=== PATIENT | female | born 1980 | race African-American/Black ===

== ENCOUNTER 2022-03-02 11:16 | Inpatient (IN) | payer OTHER ==
[2022-03-02 12:04] VITALS: BMI 26.1
[2022-03-02] MEDS ORDERED: LOPERAMIDE HCL 2 MG CAPSULE PO PRN (12:20)
[2022-03-02] MEDS ORDERED: BISMUTH SUBSALICYLATE 262 MG/15 ML BTL PO PRN (12:20)
[2022-03-02] MEDS ORDERED: MAG HYDROX/AL HYDROX/SIMETH 30 ML UNIT-DOSE CUP PO PRN (12:20)
[2022-03-02] MEDS ORDERED: ONDANSETRON *ODT* 4 MG TABLET SL PRN (12:20)
[2022-03-02] MEDS ORDERED: DICYCLOMINE HCL 10 MG CAPSULE PO PRN (12:20)
[2022-03-02] MEDS ORDERED: MAGNESIUM HYDROX 2400MG/30ML ORAL SUSPENSION 30 ML CUP PO PRN (12:20)
[2022-03-02] MEDS ORDERED: ACETAMINOPHEN 325 MG TABLET (FP) PO PRN (12:20)
[2022-03-02] MEDS ORDERED: BENZOCAINE/MENTHOL (CHLORASEPTIC ) LOZENGE MM PRN (12:20)
[2022-03-02] MEDS ORDERED: IBUPROFEN 600 MG TABLET (FP) PO PRN (12:20)
[2022-03-02] MEDS ORDERED: MAGNESIUM CITRATE 300 ML BOTTLE PO PRN (12:20)
[2022-03-02] MEDS ORDERED: NICOTINE 10 MG CARTRIDGE (INHALER) IH PRN (12:20)
[2022-03-02] MEDS: PRENATAL VITAMINS W/ FOLIC ACID TABLET (FP) PO SCH (14:05)
[2022-03-02] MEDS: hydrOXYzine PAMOATE 25 MG CAPSULE (FP) PO SCH ×3 (14:05→22:17)
[2022-03-02] MEDS: NICOTINE 14 MG/24 HOURS TOPICAL PATCH TD SCH (14:06)
[2022-03-02] MEDS: diazePAM 5 MG TABLET PO SCH ×2 (18:42→22:18)
[2022-03-02 20:27] LABS: CALCIUM 8.8 mg/dL (8.5-10.1)
[2022-03-02 20:28] LABS: ALBUMIN 3.7 g/dl (3.4-5.0); BLOOD UREA NITROGEN 15.4 mg/dL (7-18)
[2022-03-02 20:31] LABS: CREATININE 0.9 mg/dL (0.55-1.3)
[2022-03-02 20:32] LABS: BILIRUBIN,TOTAL 0.3 mg/dL (0.2-1); HEMATOCRIT 33.8 % (32.4-45.2); HEMOGLOBIN 11.2 GM/dL (10.7-15.3); MCH 25.9 pg (25.7-33.7); MCHC 33.2 g/dl (32.0-36.0); MEAN CELL VOLUME 78.1 fl (80-96); MEAN PLT VOLUME 7.8 fl (7.5-11.1); PLATELET COUNT 473 10^3/uL (134-434); RBC 4.32 M/mm3 (3.60-5.2); RDW 15.8 % (11.6-15.6); TOT PROT 7.9 g/dl (6.4-8.2); WHITE BLOOD COUNT 7.9 K/mm3 (4.0-10.0)
[2022-03-02] MEDS: MELATONIN 5 MG TABLETS PO SCH (22:17)
[2022-03-02] MEDS: THIAMINE HCL 100 MG TABLET (FP) PO SCH (22:17)
[2022-03-02] MEDS: IBUPROFEN 400 MG TABLET (FP) PO PRN (22:17)
[2022-03-03] MEDS: diazePAM 5 MG TABLET PO SCH ×4 (07:16→22:14)
[2022-03-03] MEDS: hydrOXYzine PAMOATE 25 MG CAPSULE (FP) PO SCH ×5 (07:16→22:14)
[2022-03-03] MEDS: NICOTINE 14 MG/24 HOURS TOPICAL PATCH TD SCH (10:27)
[2022-03-03] MEDS: IBUPROFEN 400 MG TABLET (FP) PO PRN ×2 (10:28→17:45)
[2022-03-03] MEDS: PRENATAL VITAMINS W/ FOLIC ACID TABLET (FP) PO SCH (10:29)
[2022-03-03] MEDS: THIAMINE HCL 100 MG TABLET (FP) PO SCH (22:14)
[2022-03-03] MEDS: MELATONIN 5 MG TABLETS PO SCH (22:14)
[2022-03-04] MEDS: IBUPROFEN 400 MG TABLET (FP) PO PRN ×2 (05:51→18:48)
[2022-03-04] MEDS: hydrOXYzine PAMOATE 25 MG CAPSULE (FP) PO SCH ×5 (05:52→22:36)
[2022-03-04] MEDS: diazePAM 5 MG TABLET PO SCH ×3 (05:52→22:36)
[2022-03-04] MEDS: METHOCARBAMOL 500 MG TABLET PO PRN ×2 (05:52→18:48)
[2022-03-04] MEDS: diazePAM 5 MG TABLET PO PRN ×2 (10:41→18:47)
[2022-03-04] MEDS: NICOTINE 14 MG/24 HOURS TOPICAL PATCH TD SCH (10:41)
[2022-03-04] MEDS: PRENATAL VITAMINS W/ FOLIC ACID TABLET (FP) PO SCH (10:41)
[2022-03-04] MEDS: THIAMINE HCL 100 MG TABLET (FP) PO SCH (22:36)
[2022-03-04] MEDS: MELATONIN 5 MG TABLETS PO SCH (22:36)
[2022-03-04] MEDS: ACETAMINOPHEN 325 MG TABLET (FP) PO PRN (22:37)
[2022-03-05] MEDS: ACETAMINOPHEN 325 MG TABLET (FP) PO PRN ×2 (06:07→17:48)
[2022-03-05] MEDS: hydrOXYzine PAMOATE 25 MG CAPSULE (FP) PO SCH ×6 (06:07→22:36)
[2022-03-05] MEDS: diazePAM 5 MG TABLET PO SCH ×2 (06:07→17:47)
[2022-03-05] MEDS: METHOCARBAMOL 500 MG TABLET PO PRN ×2 (06:07→17:48)
[2022-03-05] MEDS: PRENATAL VITAMINS W/ FOLIC ACID TABLET (FP) PO SCH (10:18)
[2022-03-05] MEDS: NICOTINE 14 MG/24 HOURS TOPICAL PATCH TD SCH (10:18)
[2022-03-05] MEDS: FLUoxetine HCL 10 MG CAPSULE PO SCH (13:45)
[2022-03-05] MEDS ORDERED: OLANZapine 5 MG TABLET PO SCH (22:00)
[2022-03-05] MEDS: THIAMINE HCL 100 MG TABLET (FP) PO SCH (22:32)
[2022-03-05] MEDS: DIVALPROEX SODIUM 250 MG TABLET E.C. PO SCH (22:32)
[2022-03-05] MEDS: MELATONIN 5 MG TABLETS PO SCH (22:32)
[2022-03-05] MEDS: IBUPROFEN 400 MG TABLET (FP) PO PRN (22:34)
[2022-03-06] MEDS ORDERED: diazePAM 5 MG TABLET PO ONE (06:00)
[2022-03-06] MEDS: hydrOXYzine PAMOATE 25 MG CAPSULE (FP) PO SCH ×2 (06:01→10:25)
[2022-03-06] MEDS: METHOCARBAMOL 500 MG TABLET PO PRN (06:01)
[2022-03-06 09:24] VITALS: BP 109/69; PULSE 98; TEMP 97.3
[2022-03-06] MEDS: PRENATAL VITAMINS W/ FOLIC ACID TABLET (FP) PO SCH (10:24)
[2022-03-06] MEDS: DIVALPROEX SODIUM 250 MG TABLET E.C. PO SCH (10:25)
[2022-03-06] MEDS: FLUoxetine HCL 10 MG CAPSULE PO SCH (10:25)
[2022-03-06] MEDS: NICOTINE 14 MG/24 HOURS TOPICAL PATCH TD SCH (10:26)
== END 2022-03-06 11:52 | disposition home or self-care (01) | DRG 774 ==
LOC: YASAS 11:16 → Y3N 12:37
PROVIDERS: ADMIT Allergy & Immunology; ATTEND Surgery
PROC: HZ2ZZZZ Detoxification Services for Substance Abuse Treatment (ICD-10-PCS; principal; 2022-03-02)
DX: F10.230 Alcohol dependence with withdrawal, uncomplicated (principal); F14.20 Cocaine dependence, uncomplicated; F12.20 Cannabis dependence, uncomplicated; F17.210 Nicotine dependence, cigarettes, uncomplicated; F43.10 Post-traumatic stress disorder, unspecified; F31.9 Bipolar disorder, unspecified; F19.24 Other psychoactive substance dependence with psychoactive substance-induced mood disorder; I10 Essential (primary) hypertension; E78.5 Hyperlipidemia, unspecified; D57.3 Sickle-cell trait; M54.59 Other low back pain; G89.29 Other chronic pain; Z91.410 Personal history of adult physical and sexual abuse; Z86.59 Personal history of other mental and behavioral disorders; Z56.0 Unemployment, unspecified; Z59.00 Homelessness unspecified
CPT/HCPCS: 36415; 80053; 81025; 85027; 86780; 93005; 93010; C9803-CS; U0003; U0005